=== PATIENT | female | born 1965 | race Caucasian/White ===

== ENCOUNTER 2019-06-14 07:48 | Outpatient (CLI) | payer OTHER, SELFPAY ==
--- NOTE | 2019-06-14 | DI.MRI_ITS ---
EXAM: MR BRAIN WO/W CLINICAL HISTORY: UNRESECTABLE PERIVENTRICULAR GBM WITH SEVERE BECKER. TECHNIQUE: Multiplanar multisequence MRI of the brain was performed. Additional post gadolinium T1 axial and coronal sequences were performed. CONTRAST MATERIAL: IV Contrast: ML of Dotarem contrast administered. FINDINGS: There has been slight interval increase in size the previously noted ill-defined enhancing mass aroun d the left lateral ventricle. There is no evidence ventricular enlargement, new mass or areas of hem orrhage. No acute infarct is seen. There is no significant mass effect or midline shift. There is significantly less white matter edema when compared with the previous exam. The vascular flow voids appear intact. IMPRESSION: Mild interval increase in size the previously noted mass centered around the left lateral ventricle. There is decreased surrounding white matter edema. The ventricles are not dilated and there is no s ignificant midline shift. DATA REPOSITORY:
[2019-06-14] MEDS: Normal Saline Flush 10 ML SYR IVP (11:07)
[2019-06-14] MEDS: Gadoterate meglumine 20 ML VIAL IVP (11:08)
== END 2019-06-14 08:08 ==
PROVIDERS: PCP Family Medicine; Visit Provider Radiology Radiation Oncology
DX: R51 Headache (principal); G93.89 Other specified disorders of brain
CPT/HCPCS: 70553

== ENCOUNTER 2019-06-25 01:54 | Outpatient (CLI) | payer OTHER, SELFPAY ==
[2019-06-25 13:13] LABS: Abs Immature Grans 0.87 k/cumm (0.0-0.09); HCT 39.3 % (36.0-46.0); HGB 13.4 g/dL (12.0-15.5); Mean Corp. HGB Concentration 34.1 g/dL (32.0-36.0); Mean Corpuscular Hemoglobin 31.4 pg (27.0-33.0); Mean Platelet Volume 8.7 fL (8.0-11.0); Platelet Count 116 x1000/uL (130-400); RBC 4.27 m/cumm (4.00-5.20); RBC Distribution Width 15.4 % (11.7-14.6); White Blood Cell Count 9.18 k/cumm (4.4-10.8)
[2019-06-25 13:47] LABS: Absolute Lymphocyte Count 0.83 k/cumm (1.2-3.4); Absolute Neutrophil Count 7.53 k/cumm (1.2-6.7); Atypical Lymphocytes % 1
[2019-06-25 13:48] LABS: Absolute Monocyte Count 0.37 k/cumm (0.11-0.7)
[2019-06-25 13:49] LABS: Diff Comment Manual Differential; Nucleated RBC 1 /100WBC
[2019-06-25 13:50] LABS: Anisocytosis 1+; Polychromasia Present
[2019-06-25 14:02] LABS: ALT 61 U/L (14-59); AST 16 U/L (15-37); Albumin 3.2 g/dL (3.4-5.0); Alkaline Phosphatase 44 U/L (46-116); BUN 32 mg/dL (7-18); Bilirubin, Total 0.6 mg/dL (0.2-1.0); Calcium 8.5 mg/dL (8.5-10.1); Chloride 101 mmol/L (98-107); Glucose 298 mg/dL (74-106); Potassium 4.7 mmol/L (3.5-5.1); Sodium 138 mmol/L (136-145)
== END 2019-06-25 02:14 ==
PROVIDERS: PCP Family Medicine; Visit Provider Psychiatry & Neurology Neurology
DX: C71.9 Malignant neoplasm of brain, unspecified (principal)
CPT/HCPCS: 36415; 80053; 85025

== ENCOUNTER 2019-06-27 01:50 | Outpatient (CLI) | payer OTHER, SELFPAY | END 2019-06-27 02:10 | PROVIDERS: PCP Family Medicine; Visit Provider Psychiatry & Neurology Neurology | DX: C71.9 Malignant neoplasm of brain, unspecified (principal); Z13.6 Encounter for screening for cardiovascular disorders | CPT/HCPCS: 93005; 93010 ==

== ENCOUNTER 2019-07-30 09:30 | Outpatient (RCR) | payer OTHER, SELFPAY ==
[2019-07-25 10:01] LABS: Abs Immature Grans 0.01 k/cumm (0.0-0.09); Absolute Eosinophil Count 0.01 k/cumm (0.0-0.7); Absolute Lymphocyte Count 0.59 k/cumm (1.2-3.4); Absolute Monocyte Count 0.08 k/cumm (0.11-0.7); Absolute Neutrophil Count 1.05 k/cumm (1.2-6.7); Eosinophils % 0.6; HCT 25.5 % (36.0-46.0); HGB 8.9 g/dL (12.0-15.5); Immature Grans % 0.6 %; Lymphocytes % 33.9; Mean Corp. HGB Concentration 34.9 g/dL (32.0-36.0); Mean Corpuscular Hemoglobin 32.7 pg (27.0-33.0); Mean Corpuscular Volume 93.8 fL (80-95); Mean Platelet Volume 9.2 fL (8.0-11.0); Monocytes % 4.6; Neutrophils % 60.3; RBC 2.72 m/cumm (4.00-5.20); RBC Distribution Width 19.2 % (11.7-14.6)
[2019-07-25 10:42] LABS: Nucleated RBC 2 /100WBC; Platelet Count 17 x1000/uL (130-400); White Blood Cell Count 1.74 k/cumm (4.4-10.8)
[2019-07-25 10:43] LABS: Anisocytosis 2+; Diff Comment Agrees w/ Instrument; Polychromasia Present
[2019-07-30 10:14] LABS: Abs Immature Grans 0.02 k/cumm (0.0-0.09); HGB 7.1 g/dL (12.0-15.5); Mean Corp. HGB Concentration 34.1 g/dL (32.0-36.0); Mean Corpuscular Volume 96.7 fL (80-95); Mean Platelet Volume 11.5 fL (8.0-11.0); RBC 2.15 m/cumm (4.00-5.20); RBC Distribution Width 21.3 % (11.7-14.6)
[2019-07-30 10:43] LABS: Anisocytosis 3+; Macrocytosis 1+; Polychromasia Present
[2019-07-30 10:44] LABS: Diff Comment Manual Differential; Nucleated RBC 3 /100WBC; Poikilocytes 1+
[2019-07-30 10:45] LABS: Absolute Lymphocyte Count 0.71 k/cumm (1.2-3.4); Absolute Monocyte Count 0.02 k/cumm (0.11-0.7); Absolute Neutrophil Count 0.96 k/cumm (1.2-6.7)
[2019-07-30 11:02] LABS: HCT 20.8 % (36.0-46.0); Platelet Count 16 x1000/uL (130-400); White Blood Cell Count 1.68 k/cumm (4.4-10.8)
== END 2019-08-11 23:59 | disposition home or self-care (01) ==
LOC: INF 09:30
PROVIDERS: PCP Family Medicine; Visit Provider Psychiatry & Neurology Neurology
DX: C71.9 Malignant neoplasm of brain, unspecified (principal); Z67.20 Type B blood, Rh positive
CPT/HCPCS: 36415; 86850; 86900; 86901; 85025